=== PATIENT | female | born 1955 | race Caucasian/White ===

== ENCOUNTER 2020-01-13 20:36 | Inpatient (IN) ==
[2020-01-13 21:32] LABS: Apearance,Urine CLEAR (Clear); Bilirubin,Urine Negative (Negative); Blood, Urine Small mg/dL (Negative); Glucose,Urine (UA) Negative (Negative); Ketones,Urine Negative (Negative); Mucus,Urine Occasional /LPF (Occasional); Nitrite,Urine Negative (Negative); Protein,Urine 30 MG/DL; RBC,Urine 4 /HPF (0-4); Squamous Epithelial Cell,Urine Occasional /HPF (0-10); Urine Color Yellow (Yellow); Urine Specific Gravity 1.009 (1.001-1.035); Urine Urobilinogen < 2.0 EU/DL (0.2-1.0); WBC,Urine 41 /HPF (0-6)
[2020-01-13 21:33] LABS: Barbiturates Screen,Urine Negative (Negative); Benzodiazepines Screen,Urine Negative (Negative); Cannabinoid Screen,Urine Negative (Negative); Opiate Screen,Urine Negative (Negative); Phencyclidine Screen,Urine Negative (Negative)
[2020-01-13 21:52] LABS: Basophils % 0.4 % (0.0-0.8); Eosinophils % 0.6 % (0.00-10.9); Immature Granulocytes % 0.6 %; Immature Granulocytes Absolute 0.03 #; Lymphocytes # 0.3 10*3/uL (1.4-4.0); Lymphocytes % 6.2 % (21.3-54.2); Mean Corpuscular HGB Conc 32.4 GM/DL (32-36); Mean Corpuscular Volume 83.3 FL (87-102); Mean Platelet Volume 11.6 FL (9.6-12.0); Monocytes % 0.9 % (1.7-12.7); Neutrophils % 91.3 % (38.7-73.9); Platelet Count 150 T/CUMM (130-400); Red Blood Count 4.44 MC/CUMM (3.8-5.5); Red Cell Distribution Width 15.1 % (9.3-17.3); White Blood Count 5.3 T/CUMM (4-12)
[2020-01-13 22:15] LABS: PT Patient Result 11.3 SECS (9.6-12.2)
[2020-01-13 22:18] LABS: Alanine Aminotransferase 29 U/L (13-56); Albumin 4.3 G/DL (3.4-5.0); Alkaline Phosphatase 83 U/L (45-117); Aspartate Amino Transferase 20 U/L (0-37); Blood Urea Nitrogen 15 MG/DL (7-18); Calcium 9.6 MG/DL (8.5-10.1); Estimated Glom Filtration Rate 47 ML/MIN; Glucose 90 MG/DL (74-106); Total Protein 8.2 G/DL (6.4-8.3); Troponin I < 0.015 NG/ML (0.00-0.045)
[2020-01-13 22:19] LABS: Anisocytosis 1+; Eosinophils 2 % (0-10); Lymphocytes 5 % (20-55); Platelet Estimate Adequate; Segmented Neutrophils 90 % (50-85); Total Cells Counted 100
[2020-01-13] MEDS ORDERED: cefTRIAXone 1,000 MG in SODIUM CHLORIDE 0.9% 100 ML IV STA (22:42)
[2020-01-13] MEDS ORDERED: ONDANSETRON 4 MG/2 ML VIAL IV PRN (23:03)
[2020-01-13] MEDS ORDERED: ACETAMINOPHEN 325 MG TABLET PO PRN (23:03)
[2020-01-14] MEDS: LACTATED RINGERS 1,000 ML IV SCH ×2 (00:47→09:12)
[2020-01-14] MEDS: oxyCODONE/ACETAMINOPHEN 5-325 MG TABLET PO PRN ×3 (01:32→21:46)
[2020-01-14 06:32] LABS: Basophils % 0.3 % (0.0-0.8); Eosinophils % 0.1 % (0.00-10.9); Hematocrit 31.8 VOL% (35.7-47.0); Hemoglobin 10.1 GM/DL (12.0-16.0); Immature Granulocytes % 0.7 %; Immature Granulocytes Absolute 0.08 #; Lymphocytes # 0.9 10*3/uL (1.4-4.0); Lymphocytes % 7.7 % (21.3-54.2); Mean Corpuscular HGB Conc 31.8 GM/DL (32-36); Mean Corpuscular Volume 85.7 FL (87-102); Mean Platelet Volume 11.5 FL (9.6-12.0); Monocytes % 5.2 % (1.7-12.7); Platelet Count 141 T/CUMM (130-400); Red Blood Count 3.71 MC/CUMM (3.8-5.5); Red Cell Distribution Width 15.2 % (9.3-17.3); White Blood Count 11.8 T/CUMM (4-12)
[2020-01-14 07:00] LABS: Calcium 8.6 MG/DL (8.5-10.1); Osmolality,Calculated 276.7 MOS/KG (273-304)
[2020-01-14] MEDS ORDERED: POTASSIUM CHLORIDE 20 MEQ TABLET PO PRN (08:21)
[2020-01-14] MEDS ORDERED: PANTOPRAZOLE 40 MG TABLET PO SCH (09:00)
[2020-01-14] MEDS: DOCUSATE SODIUM 100 MG CAPSULE PO SCH ×2 (09:16→21:46)
[2020-01-14] MEDS: FUROSEMIDE 40 MG TABLET PO SCH ×2 (09:16→17:10)
[2020-01-14] MEDS: carvediloL 3.125 MG TABLET PO SCH ×2 (09:16→21:46)
[2020-01-14] MEDS: SODIUM CHLORIDE 0.9% 1,000 ML IV SCH ×2 (09:16→17:10)
[2020-01-14] MEDS: cefTRIAXone 1,000 MG in SYRINGE 1 EACH IV SCH (09:17)
[2020-01-14] MEDS: OMEPRAZOLE ODT 20 MG TABLET PO SCH ×2 (12:20→21:46)
[2020-01-14] MEDS: allopurinoL 100 MG TABLET PO SCH (12:20)
[2020-01-14] MEDS: SERTRALINE 100 MG TABLET PO SCH (12:21)
[2020-01-14] MEDS: QUEtiapine 100 MG TABLET PO SCH (12:22)
[2020-01-14] MEDS: COLCHICINE 0.6 MG CAPSULE PO SCH ×2 (12:22→21:46)
[2020-01-14] MEDS: tiZANidine 4 MG TABLET PO SCH (21:46)
[2020-01-14] MEDS: DOXEPIN 25 MG CAPSULE PO SCH (21:46)
[2020-01-15] MEDS: SODIUM CHLORIDE 0.9% 1,000 ML IV SCH ×4 (01:11→20:51)
[2020-01-15] MEDS: LEVOTHYROXINE 50 MCG TABLET PO SCH (06:48)
[2020-01-15 06:50] LABS: Calcium 7.5 MG/DL (8.5-10.1); Osmolality,Calculated 278.4 MOS/KG (273-304)
[2020-01-15 08:31] LABS: Basophils % 0.4 % (0.0-0.8); Eosinophils # 0.1 10*3/uL (0.0-0.87); Eosinophils % 1.1 % (0.00-10.9); Hemoglobin 9.6 GM/DL (12.0-16.0); Immature Granulocytes % 0.4 %; Immature Granulocytes Absolute 0.02 #; Lymphocytes # 0.9 10*3/uL (1.4-4.0); Lymphocytes % 16.3 % (21.3-54.2); Mean Corpuscular Volume 87.3 FL (87-102); Mean Platelet Volume 11.7 FL (9.6-12.0); Monocytes % 7.5 % (1.7-12.7); Neutrophils % 74.3 % (38.7-73.9); Platelet Count 111 T/CUMM (130-400); Red Blood Count 3.55 MC/CUMM (3.8-5.5); Red Cell Distribution Width 15.6 % (9.3-17.3); White Blood Count 5.2 T/CUMM (4-12)
[2020-01-15] MEDS: COLCHICINE 0.6 MG CAPSULE PO SCH ×2 (09:36→20:45)
[2020-01-15] MEDS: carvediloL 3.125 MG TABLET PO SCH ×2 (09:36→20:44)
[2020-01-15] MEDS: allopurinoL 100 MG TABLET PO SCH (09:36)
[2020-01-15] MEDS: cefTRIAXone 1,000 MG in SYRINGE 1 EACH IV SCH (09:37)
[2020-01-15] MEDS: FUROSEMIDE 40 MG TABLET PO SCH ×2 (09:37→17:22)
[2020-01-15] MEDS: SERTRALINE 100 MG TABLET PO SCH (09:37)
[2020-01-15] MEDS: DOCUSATE SODIUM 100 MG CAPSULE PO SCH ×2 (09:37→22:51)
[2020-01-15] MEDS: OMEPRAZOLE ODT 20 MG TABLET PO SCH ×2 (09:37→20:45)
[2020-01-15] MEDS: QUEtiapine 100 MG TABLET PO SCH ×2 (09:38→23:01)
[2020-01-15] MEDS: oxyCODONE/ACETAMINOPHEN 5-325 MG TABLET PO PRN ×2 (09:40→19:28)
[2020-01-15] MEDS: PREGABALIN 100 MG CAPSULE PO SCH ×2 (17:22→20:45)
[2020-01-15] MEDS: tiZANidine 4 MG TABLET PO SCH (20:44)
[2020-01-15] MEDS: DOXEPIN 25 MG CAPSULE PO SCH (20:45)
[2020-01-15] MEDS: OXYBUTYNIN 5 MG TABLET PO SCH (20:45)
[2020-01-16] MEDS: oxyCODONE/ACETAMINOPHEN 5-325 MG TABLET PO PRN ×3 (02:09→16:38)
[2020-01-16] MEDS: SODIUM CHLORIDE 0.9% 1,000 ML IV SCH ×2 (05:02→12:56)
[2020-01-16] MEDS: LEVOTHYROXINE 50 MCG TABLET PO SCH (06:21)
[2020-01-16] MEDS: carvediloL 3.125 MG TABLET PO SCH ×2 (09:37→20:32)
[2020-01-16] MEDS: SERTRALINE 100 MG TABLET PO SCH (09:37)
[2020-01-16] MEDS: COLCHICINE 0.6 MG CAPSULE PO SCH ×2 (09:37→20:31)
[2020-01-16] MEDS: CETIRIZINE 10 MG TABLET PO SCH (09:37)
[2020-01-16] MEDS: PREGABALIN 100 MG CAPSULE PO SCH ×3 (09:37→20:32)
[2020-01-16] MEDS: allopurinoL 100 MG TABLET PO SCH (09:37)
[2020-01-16] MEDS: FUROSEMIDE 40 MG TABLET PO SCH ×2 (09:37→16:38)
[2020-01-16] MEDS: OMEPRAZOLE ODT 20 MG TABLET PO SCH ×2 (09:37→20:32)
[2020-01-16] MEDS: QUEtiapine 100 MG TABLET PO SCH ×2 (09:37→20:36)
[2020-01-16] MEDS: OXYBUTYNIN 5 MG TABLET PO SCH ×2 (09:37→20:32)
[2020-01-16] MEDS: DOCUSATE SODIUM 100 MG CAPSULE PO SCH ×2 (09:38→20:31)
[2020-01-16] MEDS: cefTRIAXone 1,000 MG in SYRINGE 1 EACH IV SCH (09:38)
[2020-01-16] MEDS: FLUTICASONE 50 MCG NASAL SPRAY 16 GM BOTTLE BOTH NARES SCH (09:38)
[2020-01-16] MEDS: DOXEPIN 25 MG CAPSULE PO SCH (20:31)
[2020-01-16] MEDS: tiZANidine 4 MG TABLET PO SCH (20:32)
[2020-01-17] MEDS: LEVOTHYROXINE 50 MCG TABLET PO SCH (05:31)
[2020-01-17] MEDS: oxyCODONE/ACETAMINOPHEN 5-325 MG TABLET PO PRN (06:19)
[2020-01-17] MEDS: SERTRALINE 100 MG TABLET PO SCH (08:31)
[2020-01-17] MEDS: FUROSEMIDE 40 MG TABLET PO SCH (08:31)
[2020-01-17] MEDS: QUEtiapine 100 MG TABLET PO SCH ×2 (08:31→08:35)
[2020-01-17] MEDS: DOCUSATE SODIUM 100 MG CAPSULE PO SCH (08:31)
[2020-01-17] MEDS: cefTRIAXone 1,000 MG in SYRINGE 1 EACH IV SCH (08:31)
[2020-01-17] MEDS: OXYBUTYNIN 5 MG TABLET PO SCH (08:32)
[2020-01-17] MEDS: FLUTICASONE 50 MCG NASAL SPRAY 16 GM BOTTLE BOTH NARES SCH (08:32)
[2020-01-17] MEDS: allopurinoL 100 MG TABLET PO SCH (08:32)
[2020-01-17] MEDS: PREGABALIN 100 MG CAPSULE PO SCH (08:32)
[2020-01-17] MEDS: COLCHICINE 0.6 MG CAPSULE PO SCH (08:32)
[2020-01-17] MEDS: CETIRIZINE 10 MG TABLET PO SCH (08:32)
[2020-01-17] MEDS: OMEPRAZOLE ODT 20 MG TABLET PO SCH (08:32)
[2020-01-17] MEDS: carvediloL 3.125 MG TABLET PO SCH (08:32)
[2020-01-17] MEDS: SODIUM CHLORIDE 0.9% 1,000 ML IV SCH (08:33)
[2020-01-17 12:32] VITALS: BP 123/79
== END 2020-01-17 12:32 | disposition home or self-care (01) | DRG 690 ==
LOC: N.ED 20:36 → N.EDINP 23:03 → N.5E 23:23
PROVIDERS: ADMIT Internal Medicine; ATTEND Internal Medicine

== ENCOUNTER 2020-04-02 02:59 | Inpatient (IN) ==
[2020-04-02] MEDS ORDERED: ASPIRIN 325 MG TABLET PO STA (03:11)
[2020-04-02] MEDS ORDERED: SODIUM CHLORIDE 0.9% 1,000 ML IV STA (03:27)
[2020-04-02] MEDS ORDERED: NALOXONE 0.4 MG/ML VIAL IV STA (03:32)
[2020-04-02] MEDS ORDERED: NALOXONE 0.4 MG/ML VIAL ONE (03:32)
[2020-04-02 03:49] LABS: Basophils % 0.6 % (0.0-0.8); Eosinophils # 0.1 10*3/uL (0.0-0.87); Eosinophils % 1.2 % (0.00-10.9); Hematocrit 31.6 VOL% (35.7-47.0); Hemoglobin 9.7 GM/DL (12.0-16.0); Immature Granulocytes % 0.3 %; Immature Granulocytes Absolute 0.02 #; Lymphocytes # 1.6 10*3/uL (1.4-4.0); Lymphocytes % 22.8 % (21.3-54.2); Mean Corpuscular HGB Conc 30.7 GM/DL (32-36); Mean Corpuscular Volume 85.9 FL (87-102); Mean Platelet Volume 11.3 FL (9.6-12.0); Monocytes % 7.6 % (1.7-12.7); Neutrophils % 67.5 % (38.7-73.9); Platelet Count 173 T/CUMM (130-400); Red Blood Count 3.68 MC/CUMM (3.8-5.5); Red Cell Distribution Width 14.9 % (9.3-17.3); White Blood Count 6.8 T/CUMM (4-12)
[2020-04-02 04:09] LABS: Alanine Aminotransferase 22 U/L (13-56); Albumin 3.1 G/DL (3.4-5.0); Alkaline Phosphatase 75 U/L (45-117); Aspartate Amino Transferase 20 U/L (0-37); Bilirubin,Total < 0.39 MG/DL (0.2-1.0); Blood Urea Nitrogen 16 MG/DL (7-18); Estimated Glom Filtration Rate 51 ML/MIN; Glucose 140 MG/DL (74-106); Osmolality,Calculated 279.5 MOS/KG (273-304); Total Protein 5.9 G/DL (6.4-8.3)
[2020-04-02 04:34] LABS: Apearance,Urine CLEAR (Clear); Bacteria,Urine Occasional /HPF (Few); Blood, Urine Negative (Negative); Glucose,Urine (UA) Negative (Negative); Hyaline Casts,Urine 489 /LPF (0-3); Ketones,Urine Negative (Negative); Mucus,Urine Occasional /LPF (Occasional); Nitrite,Urine Negative (Negative); Protein,Urine Negative; RBC,Urine <1 /HPF (0-4); Squamous Epithelial Cell,Urine Occasional /HPF (0-10); Urine Color Yellow (Yellow); Urine Specific Gravity 1.024 (1.001-1.035); Urine Urobilinogen < 2.0 EU/DL (0.2-1.0); WBC,Urine 2 /HPF (0-6)
[2020-04-02 04:35] LABS: Bilirubin,Urine Small mg/dL (Negative)
[2020-04-02 04:48] LABS: Barbiturates Screen,Urine Negative (Negative); Benzodiazepines Screen,Urine Negative (Negative); Cannabinoid Screen,Urine Negative (Negative); Opiate Screen,Urine Positive (Negative); Phencyclidine Screen,Urine Negative (Negative)
[2020-04-02 04:51] LABS: Ferritin 10.2 ng/ml (8-252)
[2020-04-02] MEDS ORDERED: AZITHROMYCIN INJ 500 MG in SODIUM CHLORIDE 0.9% 250 ML IV STA (05:12)
[2020-04-02] MEDS ORDERED: ONDANSETRON 4 MG/2 ML VIAL IV PRN (05:13)
[2020-04-02] MEDS ORDERED: ACETAMINOPHEN 325 MG TABLET PO PRN (05:13)
[2020-04-02] MEDS ORDERED: AZITHROMYCIN INJ 500 MG in SODIUM CHLORIDE 0.9% 250 ML IV SCH (05:30)
[2020-04-02] MEDS: SODIUM CHLORIDE 0.9% 1,000 ML IV SCH ×2 (08:55→15:52)
[2020-04-02] MEDS: PANTOPRAZOLE 40 MG TABLET PO SCH (08:55)
[2020-04-02] MEDS ORDERED: traMADol 50 MG TABLET PO PRN (16:17)
[2020-04-02] MEDS ORDERED: tiZANidine 4 MG TABLET PO PRN (16:55)
[2020-04-02] MEDS: oxyCODONE IR 5 MG TABLET PO PRN (17:22)
[2020-04-02] MEDS ORDERED: AMPHETAMINE PO SCH (19:00)
[2020-04-02] MEDS ORDERED: DEXTROAMPHETAMINE PO SCH (19:00)
[2020-04-02] MEDS: DULoxetine 30 MG CAPSULE PO SCH (20:44)
[2020-04-02] MEDS: carvediloL 6.25 MG TABLET PO SCH (20:45)
[2020-04-02] MEDS: QUEtiapine 100 MG TABLET PO SCH (20:45)
[2020-04-02] MEDS: OXYBUTYNIN 5 MG TABLET PO SCH (20:46)
[2020-04-02] MEDS: PREGABALIN 100 MG CAPSULE PO SCH (20:46)
[2020-04-03] MEDS: oxyCODONE IR 5 MG TABLET PO PRN ×2 (02:54→10:51)
[2020-04-03 05:51] LABS: Basophils % 0.6 % (0.0-0.8); Eosinophils # 0.1 10*3/uL (0.0-0.87); Eosinophils % 1.4 % (0.00-10.9); Hematocrit 30.3 VOL% (35.7-47.0); Hemoglobin 9.4 GM/DL (12.0-16.0); Immature Granulocytes % 0.6 %; Immature Granulocytes Absolute 0.03 #; Lymphocytes # 1.6 10*3/uL (1.4-4.0); Lymphocytes % 32.7 % (21.3-54.2); Mean Corpuscular Volume 85.8 FL (87-102); Mean Platelet Volume 11.4 FL (9.6-12.0); Monocytes % 8.4 % (1.7-12.7); Neutrophils % 56.3 % (38.7-73.9); Platelet Count 141 T/CUMM (130-400); Red Blood Count 3.53 MC/CUMM (3.8-5.5); Red Cell Distribution Width 15.3 % (9.3-17.3); White Blood Count 4.9 T/CUMM (4-12)
[2020-04-03 06:22] LABS: Calcium 7.9 MG/DL (8.5-10.1); Osmolality,Calculated 279.4 MOS/KG (273-304); Uric Acid 7.2 MG/DL (2.6-6.0)
[2020-04-03] MEDS: carvediloL 6.25 MG TABLET PO SCH ×2 (10:51→22:37)
[2020-04-03] MEDS: FLUTICASONE 50 MCG NASAL SPRAY 16 GM BOTTLE BOTH NARES SCH (10:51)
[2020-04-03] MEDS: AZITHROMYCIN 250 MG TABLET PO SCH (10:51)
[2020-04-03] MEDS: PANTOPRAZOLE 40 MG TABLET PO SCH (10:52)
[2020-04-03] MEDS: CETIRIZINE 10 MG TABLET PO SCH (10:52)
[2020-04-03] MEDS: LEVOTHYROXINE 100 MCG TABLET PO SCH (10:52)
[2020-04-03] MEDS: SERTRALINE 100 MG TABLET PO SCH (10:52)
[2020-04-03] MEDS: OXYBUTYNIN 5 MG TABLET PO SCH ×2 (10:52→22:38)
[2020-04-03] MEDS: DULoxetine 30 MG CAPSULE PO SCH ×2 (10:52→22:37)
[2020-04-03] MEDS: PREGABALIN 100 MG CAPSULE PO SCH ×3 (10:52→22:38)
[2020-04-03] MEDS: ENOXAPARIN 40 MG/0.4 ML SYRINGE SUBCUT SCH (11:32)
[2020-04-03] MEDS: SODIUM CHLORIDE 0.9% 1,000 ML IV SCH ×2 (13:28→14:15)
[2020-04-03] MEDS: ALBUTEROL 1.25 MG/3 ML NEB RESP TX SCH ×2 (14:50→23:57)
[2020-04-03] MEDS: methylPREDNISolone SOD SUC 40 MG/1 ML VIAL IV SCH ×2 (15:54→23:49)
[2020-04-03] MEDS: QUEtiapine 100 MG TABLET PO SCH (22:38)
[2020-04-04 05:58] LABS: Calcium 8.5 MG/DL (8.5-10.1); Osmolality,Calculated 276.7 MOS/KG (273-304)
[2020-04-04] MEDS: methylPREDNISolone SOD SUC 40 MG/1 ML VIAL IV SCH ×3 (06:01→21:40)
[2020-04-04] MEDS: ALBUTEROL 1.25 MG/3 ML NEB RESP TX SCH ×2 (08:09→14:27)
[2020-04-04 08:58] LABS: Troponin I < 0.015 NG/ML (0.00-0.045)
[2020-04-04] MEDS: ENOXAPARIN 40 MG/0.4 ML SYRINGE SUBCUT SCH (09:44)
[2020-04-04] MEDS: AZITHROMYCIN 250 MG TABLET PO SCH (09:45)
[2020-04-04] MEDS: LEVOTHYROXINE 100 MCG TABLET PO SCH (09:45)
[2020-04-04] MEDS: SERTRALINE 100 MG TABLET PO SCH (09:46)
[2020-04-04] MEDS: carvediloL 6.25 MG TABLET PO SCH ×2 (09:46→21:40)
[2020-04-04] MEDS: FLUTICASONE 50 MCG NASAL SPRAY 16 GM BOTTLE BOTH NARES SCH (09:46)
[2020-04-04] MEDS: CETIRIZINE 10 MG TABLET PO SCH (09:46)
[2020-04-04] MEDS: OXYBUTYNIN 5 MG TABLET PO SCH ×2 (09:46→21:40)
[2020-04-04] MEDS: PREGABALIN 100 MG CAPSULE PO SCH ×3 (09:46→21:40)
[2020-04-04] MEDS: PANTOPRAZOLE 40 MG TABLET PO SCH (09:46)
[2020-04-04] MEDS: DULoxetine 30 MG CAPSULE PO SCH ×2 (09:46→21:40)
[2020-04-04] MEDS: oxyCODONE IR 5 MG TABLET PO PRN ×2 (09:56→19:15)
[2020-04-04 12:18] LABS: Troponin I < 0.015 NG/ML (0.00-0.045)
[2020-04-04 15:03] LABS: Troponin I < 0.015 NG/ML (0.00-0.045)
[2020-04-04] MEDS: SODIUM CHLORIDE 0.9% 1,000 ML IV SCH (15:43)
[2020-04-04] MEDS: QUEtiapine 100 MG TABLET PO SCH (21:40)
[2020-04-05] MEDS: ALBUTEROL 1.25 MG/3 ML NEB RESP TX SCH ×2 (00:27→07:15)
[2020-04-05] MEDS: SODIUM CHLORIDE 0.9% 1,000 ML IV SCH ×2 (02:57→09:18)
[2020-04-05 05:45] LABS: Basophils % 0.1 % (0.0-0.8); Hematocrit 32.4 VOL% (35.7-47.0); Hemoglobin 9.9 GM/DL (12.0-16.0); Immature Granulocytes % 0.9 %; Immature Granulocytes Absolute 0.11 #; Lymphocytes # 1.2 10*3/uL (1.4-4.0); Lymphocytes % 9.5 % (21.3-54.2); Mean Corpuscular HGB Conc 30.6 GM/DL (32-36); Mean Corpuscular Volume 87.3 FL (87-102); Mean Platelet Volume 11.9 FL (9.6-12.0); Neutrophils % 86.5 % (38.7-73.9); Platelet Count 175 T/CUMM (130-400); Red Blood Count 3.71 MC/CUMM (3.8-5.5); Red Cell Distribution Width 15.4 % (9.3-17.3); White Blood Count 12.2 T/CUMM (4-12)
[2020-04-05 06:06] LABS: Calcium 8.6 MG/DL (8.5-10.1); Osmolality,Calculated 277.8 MOS/KG (273-304)
[2020-04-05] MEDS: carvediloL 6.25 MG TABLET PO SCH (08:32)
[2020-04-05] MEDS: SERTRALINE 100 MG TABLET PO SCH (09:01)
[2020-04-05] MEDS: PANTOPRAZOLE 40 MG TABLET PO SCH (09:01)
[2020-04-05] MEDS: DULoxetine 30 MG CAPSULE PO SCH (09:01)
[2020-04-05] MEDS: ENOXAPARIN 40 MG/0.4 ML SYRINGE SUBCUT SCH (09:01)
[2020-04-05] MEDS: AZITHROMYCIN 250 MG TABLET PO SCH (09:01)
[2020-04-05] MEDS: CETIRIZINE 10 MG TABLET PO SCH (09:02)
[2020-04-05] MEDS: OXYBUTYNIN 5 MG TABLET PO SCH (09:02)
[2020-04-05] MEDS: LEVOTHYROXINE 100 MCG TABLET PO SCH (09:02)
[2020-04-05] MEDS: oxyCODONE IR 5 MG TABLET PO PRN (09:02)
[2020-04-05] MEDS: PREGABALIN 100 MG CAPSULE PO SCH (09:02)
[2020-04-05] MEDS: FLUTICASONE 50 MCG NASAL SPRAY 16 GM BOTTLE BOTH NARES SCH (09:03)
[2020-04-05] MEDS: methylPREDNISolone SOD SUC 40 MG/1 ML VIAL IV SCH (09:14)
[2020-04-05 11:26] VITALS: BP 112/64
== END 2020-04-05 12:21 | disposition home or self-care (01) | DRG 203 ==
LOC: N.ED 02:59 → N.EDINP 05:12 → N.3E 13:39
PROVIDERS: ADMIT Internal Medicine; ATTEND Internal Medicine

== ENCOUNTER 2021-10-29 05:33 | Inpatient (IN) ==
[2021-10-29] MEDS ORDERED: GABAPENTIN 400 MG CAPSULE PO ONE (06:24)
[2021-10-29] MEDS ORDERED: FAMOTIDINE 20 MG TABLET PO ONE (06:24)
[2021-10-29] MEDS ORDERED: ACETAMINOPHEN 500 MG TABLET PO ONE (06:24)
[2021-10-29] MEDS ORDERED: DIAZEPAM 5 MG TABLET PO ONE (06:24)
[2021-10-29] MEDS ORDERED: VANCOMYCIN INJ 1,000 MG in SODIUM CHLORIDE 0.9% 250 ML IV ONE (06:30)
[2021-10-29] MEDS ORDERED: CLINDAMYCIN INJ 900 MG/50 ML PREMIX IV ONE (06:56)
[2021-10-29] MEDS: LACTATED RINGERS 1,000 ML IV SCH ×2 (07:14→11:02)
[2021-10-29] MEDS ORDERED: DEXMEDETOMIDINE 200 MCG/2 ML VIAL ONE (07:45)
[2021-10-29] MEDS ORDERED: LIDOCAINE 1% 5 ML VIAL ONE (07:45)
[2021-10-29] MEDS ORDERED: ROPIVACAINE 0.5% 30 ML VIAL ONE (07:45)
[2021-10-29] MEDS ORDERED: DEXAMETHASONE 4 MG/1 ML VIAL ONE (07:45)
[2021-10-29] MEDS ORDERED: MIDAZOLAM 2 MG/2 ML VIAL ONE ×2 (08:09→09:28)
[2021-10-29] MEDS ORDERED: TRANEXAMIC ACID 1,000 MG/10 ML VIAL ONE (08:53)
[2021-10-29] MEDS ORDERED: PHENYLEPHRINE 1 MG/10 ML SYRINGE IV ONE (08:58)
[2021-10-29] MEDS ORDERED: GLYCOPYRROLATE 0.4 MG/2 ML VIAL ONE (09:26)
[2021-10-29] MEDS ORDERED: ACETAMINOPHEN INJ 1,000 MG/100 ML VIAL IV ONE (09:31)
[2021-10-29] MEDS ORDERED: PROMETHAZINE 25 MG/1 ML VIAL IM PRN (10:03)
[2021-10-29] MEDS ORDERED: LACTULOSE 20 GM/30 ML UDCUP PO PRN (10:03)
[2021-10-29] MEDS ORDERED: MAGNESIUM HYDROXIDE SUSP 30 ML UDCUP PO PRN (10:03)
[2021-10-29] MEDS ORDERED: TEMAZEPAM 7.5 MG CAPSULE PO PRN (10:03)
[2021-10-29] MEDS ORDERED: ONDANSETRON 4 MG/2 ML VIAL IV PRN (10:03)
[2021-10-29] MEDS ORDERED: diphenhydrAMINE CAP 25 MG CAPSULE PO PRN (10:03)
[2021-10-29] MEDS ORDERED: BISACODYL 10 MG SUPP RECTAL PRN (10:03)
[2021-10-29] MEDS ORDERED: ALBUTEROL 2.5 MG/3 ML NEB RESP TX PRN (10:06)
[2021-10-29] MEDS ORDERED: COLCHICINE 0.6 MG CAPSULE PO PRN (10:06)
[2021-10-29] MEDS ORDERED: tiZANidine 4 MG TABLET PO PRN (10:06)
[2021-10-29] MEDS ORDERED: MORPHINE 2 MG/1 ML SYRINGE IV PRN (10:49)
[2021-10-29] MEDS: PREGABALIN 100 MG CAPSULE PO SCH ×2 (15:59→20:25)
[2021-10-29] MEDS: PANTOPRAZOLE 40 MG TABLET PO SCH (17:19)
[2021-10-29] MEDS: FERROUS SULFATE 325 MG TABLET PO SCH (17:19)
[2021-10-29] MEDS: ceFAZolin 2,000 MG/50 ML DUPLEX IV SCH (17:19)
[2021-10-29] MEDS: ENOXAPARIN 30 MG/0.3 ML SYRINGE SUBCUT SCH (20:24)
[2021-10-29] MEDS: MORPHINE 2 MG/1 ML SYRINGE IV PRN (20:24)
[2021-10-29] MEDS: DULoxetine 30 MG CAPSULE PO SCH (20:24)
[2021-10-29] MEDS: ZALEPLON 5 MG CAPSULE PO SCH (20:24)
[2021-10-29] MEDS: POTASSIUM CHLORIDE 10 MEQ TABLET PO SCH (20:24)
[2021-10-29] MEDS: DOCUSATE SODIUM 100 MG CAPSULE PO SCH (20:24)
[2021-10-29] MEDS: OXYBUTYNIN 5 MG TABLET PO SCH (20:24)
[2021-10-29] MEDS ORDERED: NABUMETONE 750 MG PO SCH (21:00)
[2021-10-30] MEDS: ceFAZolin 2,000 MG/50 ML DUPLEX IV SCH (00:25)
[2021-10-30] MEDS: MORPHINE 2 MG/1 ML SYRINGE IV PRN ×2 (04:51→10:54)
[2021-10-30 05:19] LABS: Basophils % 0.1 % (0.0-0.8); Hematocrit 28.7 VOL% (35.7-47.0); Hemoglobin 8.8 GM/DL (12.0-16.0); Immature Granulocytes % 0.5 %; Immature Granulocytes Absolute 0.05 #; Lymphocytes # 1.5 10*3/uL (1.4-4.0); Lymphocytes % 14.5 % (21.3-54.2); Mean Corpuscular HGB Conc 30.7 GM/DL (32-36); Mean Corpuscular Volume 81.5 FL (87-102); Mean Platelet Volume 11.5 FL (9.6-12.0); Monocytes % 7.8 % (1.7-12.7); Neutrophils % 77.1 % (38.7-73.9); Platelet Count 170 T/CUMM (130-400); Red Blood Count 3.52 MC/CUMM (3.8-5.5); Red Cell Distribution Width 17.3 % (9.3-17.3); White Blood Count 10.3 T/CUMM (4-12)
[2021-10-30 05:58] LABS: Calcium 8.2 MG/DL (8.5-10.1); Osmolality,Calculated 283.1 MOS/KG (273-304); Potassium 3.2 MMOL/L (3.5-5.1)
[2021-10-30] MEDS: LEVOTHYROXINE 100 MCG TABLET PO SCH (06:11)
[2021-10-30] MEDS: FERROUS SULFATE 325 MG TABLET PO SCH ×2 (07:40→16:07)
[2021-10-30] MEDS: PANTOPRAZOLE 40 MG TABLET PO SCH ×2 (07:40→15:52)
[2021-10-30] MEDS: carvediloL 6.25 MG TABLET PO SCH ×2 (09:23→20:37)
[2021-10-30] MEDS: allopurinoL 300 MG TABLET PO SCH (09:23)
[2021-10-30] MEDS: FLUTICASONE 50 MCG NASAL SPRAY 16 GM BOTTLE BOTH NARES SCH (09:23)
[2021-10-30] MEDS: DOCUSATE SODIUM 100 MG CAPSULE PO SCH ×2 (09:23→20:37)
[2021-10-30] MEDS: LORATADINE 10 MG TABLET PO SCH (09:23)
[2021-10-30] MEDS: OXYBUTYNIN 5 MG TABLET PO SCH ×2 (09:23→20:37)
[2021-10-30] MEDS: POTASSIUM CHLORIDE 10 MEQ TABLET PO SCH ×4 (09:23→20:37)
[2021-10-30] MEDS: PREGABALIN 100 MG CAPSULE PO SCH ×3 (09:24→20:37)
[2021-10-30] MEDS ORDERED: ACETAMINOPHEN 325 MG TABLET PO PRN (10:05)
[2021-10-30] MEDS: FUROSEMIDE 40 MG TABLET PO SCH (10:20)
[2021-10-30] MEDS: CARIPRAZINE 3 MG PO SCH (10:20)
[2021-10-30] MEDS: oxyCODONE IR 5 MG TABLET PO PRN (15:52)
[2021-10-30] MEDS: DULoxetine 30 MG CAPSULE PO SCH (20:37)
[2021-10-30] MEDS: ENOXAPARIN 30 MG/0.3 ML SYRINGE SUBCUT SCH (20:38)
[2021-10-30] MEDS: ZALEPLON 5 MG CAPSULE PO SCH (20:42)
[2021-10-31] MEDS: oxyCODONE IR 5 MG TABLET PO PRN ×2 (00:29→15:08)
[2021-10-31 04:44] LABS: Basophils % 0.3 % (0.0-0.8); Eosinophils # 0.1 10*3/uL (0.0-0.87); Eosinophils % 1.1 % (0.00-10.9); Hematocrit 30.1 VOL% (35.7-47.0); Hemoglobin 9.2 GM/DL (12.0-16.0); Immature Granulocytes % 0.7 %; Immature Granulocytes Absolute 0.06 #; Lymphocytes # 1.7 10*3/uL (1.4-4.0); Lymphocytes % 18.7 % (21.3-54.2); Mean Corpuscular HGB Conc 30.6 GM/DL (32-36); Mean Corpuscular Volume 82.5 FL (87-102); Mean Platelet Volume 11.2 FL (9.6-12.0); Monocytes % 7.4 % (1.7-12.7); Neutrophils % 71.8 % (38.7-73.9); Platelet Count 153 T/CUMM (130-400); Red Blood Count 3.65 MC/CUMM (3.8-5.5); Red Cell Distribution Width 18.3 % (9.3-17.3); White Blood Count 8.8 T/CUMM (4-12)
[2021-10-31 05:11] LABS: Calcium 8.3 MG/DL (8.5-10.1); Osmolality,Calculated 283.1 MOS/KG (273-304); Potassium 3.3 MMOL/L (3.5-5.1)
[2021-10-31] MEDS: LEVOTHYROXINE 100 MCG TABLET PO SCH (06:11)
[2021-10-31] MEDS ORDERED: POTASSIUM CHLORIDE 20 MEQ TABLET PO PRN (08:33)
[2021-10-31] MEDS: POTASSIUM CHLORIDE 10 MEQ TABLET PO SCH ×3 (08:57→20:29)
[2021-10-31] MEDS: OXYBUTYNIN 5 MG TABLET PO SCH ×2 (08:57→20:29)
[2021-10-31] MEDS: DOCUSATE SODIUM 100 MG CAPSULE PO SCH ×2 (08:58→20:29)
[2021-10-31] MEDS: carvediloL 6.25 MG TABLET PO SCH ×2 (08:58→20:28)
[2021-10-31] MEDS: FERROUS SULFATE 325 MG TABLET PO SCH ×2 (08:58→16:23)
[2021-10-31] MEDS: PREGABALIN 100 MG CAPSULE PO SCH ×3 (08:58→20:29)
[2021-10-31] MEDS: PANTOPRAZOLE 40 MG TABLET PO SCH ×2 (08:58→16:23)
[2021-10-31] MEDS: LORATADINE 10 MG TABLET PO SCH (08:58)
[2021-10-31] MEDS: allopurinoL 300 MG TABLET PO SCH (08:58)
[2021-10-31] MEDS: FLUTICASONE 50 MCG NASAL SPRAY 16 GM BOTTLE BOTH NARES SCH (09:02)
[2021-10-31] MEDS: FUROSEMIDE 40 MG TABLET PO SCH (10:32)
[2021-10-31] MEDS: CARIPRAZINE 3 MG PO SCH (10:33)
[2021-10-31] MEDS: DULoxetine 30 MG CAPSULE PO SCH (20:28)
[2021-10-31] MEDS: ZALEPLON 5 MG CAPSULE PO SCH (20:29)
[2021-10-31] MEDS: ENOXAPARIN 30 MG/0.3 ML SYRINGE SUBCUT SCH (20:30)
[2021-11-01] MEDS: LEVOTHYROXINE 100 MCG TABLET PO SCH (05:36)
[2021-11-01 08:10] VITALS: BP 131/66
[2021-11-01] MEDS: FERROUS SULFATE 325 MG TABLET PO SCH (09:29)
[2021-11-01] MEDS: LORATADINE 10 MG TABLET PO SCH (09:30)
[2021-11-01] MEDS: allopurinoL 300 MG TABLET PO SCH (09:30)
[2021-11-01] MEDS: carvediloL 6.25 MG TABLET PO SCH (09:30)
[2021-11-01] MEDS: OXYBUTYNIN 5 MG TABLET PO SCH (09:30)
[2021-11-01] MEDS: DOCUSATE SODIUM 100 MG CAPSULE PO SCH (09:30)
[2021-11-01] MEDS: PANTOPRAZOLE 40 MG TABLET PO SCH (09:30)
[2021-11-01] MEDS: POTASSIUM CHLORIDE 10 MEQ TABLET PO SCH (09:31)
[2021-11-01] MEDS: PREGABALIN 100 MG CAPSULE PO SCH (09:31)
[2021-11-01] MEDS: FLUTICASONE 50 MCG NASAL SPRAY 16 GM BOTTLE BOTH NARES SCH (09:35)
[2021-11-01] MEDS: CARIPRAZINE 3 MG PO SCH (10:04)
[2021-11-01] MEDS: FUROSEMIDE 40 MG TABLET PO SCH (10:04)
[2021-11-01] MEDS: ENOXAPARIN 30 MG/0.3 ML SYRINGE SUBCUT SCH (10:33)
== END 2021-11-01 11:57 | disposition home health service (06) | DRG 470 ==
LOC: N.OR 05:33 → N.SDSINP 05:36 → N.3E 11:31
PROVIDERS: ADMIT Orthopaedic Surgery; ATTEND Orthopaedic Surgery

== ENCOUNTER 2022-09-05 05:42 | Inpatient (IN) ==
[2022-09-05] MEDS ORDERED: ONDANSETRON 4 MG/2 ML VIAL IV STA (06:03)
[2022-09-05] MEDS ORDERED: MORPHINE 10 MG/1 ML VIAL IV STA ×3 (06:03→09:42)
[2022-09-05] MEDS ORDERED: MORPHINE 2 MG/1 ML SYRINGE ONE (06:08)
[2022-09-05 06:09] LABS: Basophils % 0.4 % (0.0-0.8); Eosinophils % 0.4 % (0.00-10.9); Hematocrit 36.8 VOL% (35.7-47.0); Immature Granulocytes % 0.3 %; Immature Granulocytes Absolute 0.03 #; Lymphocytes % 9.3 % (21.3-54.2); Mean Corpuscular HGB Conc 32.6 GM/DL (32-36); Mean Corpuscular Volume 79.1 FL (87-102); Mean Platelet Volume 10.6 FL (9.6-12.0); Monocytes # 0.9 10*3/uL (0.11-0.8); Monocytes % 8.3 % (1.7-12.7); Neutrophils % 81.3 % (38.7-73.9); Platelet Count 233 T/CUMM (130-400); Red Blood Count 4.65 MC/CUMM (3.8-5.5); Red Cell Distribution Width 15.7 % (9.3-17.3); White Blood Count 10.7 T/CUMM (4-12)
[2022-09-05] MEDS ORDERED: PROMETHAZINE INJ 12.5 MG in SODIUM CHLORIDE 0.9% 50 ML IV STA (06:17)
[2022-09-05] MEDS ORDERED: PROMETHAZINE 25 MG/1 ML VIAL ONE (06:19)
[2022-09-05] MEDS ORDERED: KETOROLAC 30 MG/1 ML VIAL IV STA (06:28)
[2022-09-05 06:29] LABS: Albumin 3.8 G/DL (3.4-5.0); Bilirubin,Total 0.5 MG/DL (0.20-1.00); Calcium 8.9 MG/DL (8.5-10.1); Osmolality,Calculated 285.3 MOS/KG (273-304); Potassium 3.2 MMOL/L (3.5-5.1); Total Protein 7.3 G/DL (6.4-8.2)
[2022-09-05] MEDS ORDERED: MORPHINE 2 MG/1 ML SYRINGE IV STA ×2 (06:30→09:45)
[2022-09-05] MEDS ORDERED: SODIUM CHLORIDE 0.9% 1,000 ML IV STA (07:25)
[2022-09-05] MEDS ORDERED: LORazepam 2 MG/1 ML VIAL IV STA (10:59)
[2022-09-05] MEDS ORDERED: ONDANSETRON 4 MG/2 ML VIAL IV PRN (11:01)
[2022-09-05] MEDS ORDERED: ACETAMINOPHEN 325 MG TABLET PO PRN (11:01)
[2022-09-05] MEDS ORDERED: MORPHINE 2 MG/1 ML SYRINGE IV PRN (11:01)
[2022-09-05] MEDS: DEXTROSE 5% LACTATED RINGERS 1,000 ML IV SCH ×2 (15:57→21:50)
[2022-09-05] MEDS: FUROSEMIDE 40 MG TABLET PO SCH (17:04)
[2022-09-05] MEDS: MORPHINE 2 MG/1 ML SYRINGE IV PRN (18:27)
[2022-09-05] MEDS: PREGABALIN 100 MG CAPSULE PO SCH (21:06)
[2022-09-05] MEDS: ZALEPLON 5 MG CAPSULE PO PRN (21:06)
[2022-09-05] MEDS: carvediloL 6.25 MG TABLET PO SCH (21:06)
[2022-09-05] MEDS: tiZANidine 4 MG TABLET PO PRN (21:06)
[2022-09-06] MEDS: DEXTROSE 5% LACTATED RINGERS 1,000 ML IV SCH ×7 (00:30→23:01)
[2022-09-06 05:28] LABS: Basophils % 0.4 % (0.0-0.8); Eosinophils # 0.1 10*3/uL (0.0-0.87); Eosinophils % 1.5 % (0.00-10.9); Hematocrit 30.1 VOL% (35.7-47.0); Hemoglobin 9.6 GM/DL (12.0-16.0); Immature Granulocytes % 0.2 %; Immature Granulocytes Absolute 0.01 #; Lymphocytes # 1.3 10*3/uL (1.4-4.0); Lymphocytes % 27.6 % (21.3-54.2); Mean Corpuscular HGB Conc 31.9 GM/DL (32-36); Mean Platelet Volume 11.1 FL (9.6-12.0); Monocytes # 0.4 10*3/uL (0.11-0.8); Neutrophils % 61.3 % (38.7-73.9); Platelet Count 185 T/CUMM (130-400); Red Blood Count 3.67 MC/CUMM (3.8-5.5); Red Cell Distribution Width 15.9 % (9.3-17.3); White Blood Count 4.6 T/CUMM (4-12)
[2022-09-06] MEDS: ENOXAPARIN 40 MG/0.4 ML SYRINGE SUBCUT SCH (05:34)
[2022-09-06 05:41] LABS: Calcium 7.7 MG/DL (8.5-10.1); Osmolality,Calculated 286.8 MOS/KG (273-304); Potassium 2.9 MMOL/L (3.5-5.1)
[2022-09-06] MEDS: POTASSIUM CHLORIDE RIDER 10 MEQ/100 ML PREMIX IV PRN ×8 (07:14→17:59)
[2022-09-06] MEDS: carvediloL 6.25 MG TABLET PO SCH ×2 (08:39→20:10)
[2022-09-06] MEDS: PANTOPRAZOLE 40 MG TABLET PO SCH (08:39)
[2022-09-06] MEDS: PREGABALIN 100 MG CAPSULE PO SCH ×3 (08:39→20:10)
[2022-09-06] MEDS: FUROSEMIDE 40 MG TABLET PO SCH ×2 (08:39→15:34)
[2022-09-06] MEDS: MORPHINE 2 MG/1 ML SYRINGE IV PRN ×3 (08:44→19:23)
[2022-09-06] MEDS: tiZANidine 4 MG TABLET PO PRN ×3 (11:25→23:01)
[2022-09-06] MEDS ORDERED: NABUMETONE 750 MG TABLET PO PRN (13:30)
[2022-09-06] MEDS ORDERED: HydrOXYzine PAMOATE 25 MG CAPSULE PO PRN (13:30)
[2022-09-06] MEDS ORDERED: busPIRone 10 MG TABLET PO PRN (13:30)
[2022-09-06 17:18] LABS: RBC,Urine 1 /HPF (0-4); Squamous Epithelial Cell,Urine Occasional /HPF (0-10)
[2022-09-06 17:30] LABS: Glucose,Urine (UA) Negative (Negative); Ketones,Urine Negative (Negative); Nitrite,Urine Negative (Negative); Protein,Urine Negative (Negative); Urine Appearance Clear (Clear); Urine Color Yellow (Yellow); Urine pH 7.5 (4.5-8.0)
[2022-09-06 17:31] LABS: Bilirubin,Urine Negative (Negative); Blood, Urine Negative (Negative); Urine Urobilinogen 0.2 eU/dL (<2.0)
[2022-09-06] MEDS: OXYBUTYNIN 5 MG TABLET PO SCH (20:10)
[2022-09-07] MEDS: ENOXAPARIN 40 MG/0.4 ML SYRINGE SUBCUT SCH (04:54)
[2022-09-07] MEDS: MORPHINE 2 MG/1 ML SYRINGE IV PRN ×2 (04:54→21:04)
[2022-09-07] MEDS: DEXTROSE 5% LACTATED RINGERS 1,000 ML IV SCH ×2 (05:00→15:20)
[2022-09-07] MEDS: LEVOTHYROXINE 100 MCG TABLET PO SCH (05:57)
[2022-09-07] MEDS: DULoxetine 30 MG CAPSULE PO SCH (08:38)
[2022-09-07] MEDS: carvediloL 6.25 MG TABLET PO SCH ×2 (08:39→21:01)
[2022-09-07] MEDS: FUROSEMIDE 40 MG TABLET PO SCH ×2 (08:39→16:02)
[2022-09-07] MEDS: OXYBUTYNIN 5 MG TABLET PO SCH ×2 (08:39→21:01)
[2022-09-07] MEDS: PANTOPRAZOLE 40 MG TABLET PO SCH (08:39)
[2022-09-07] MEDS: PREGABALIN 100 MG CAPSULE PO SCH ×3 (08:39→21:01)
[2022-09-07] MEDS: POTASSIUM CHLORIDE 10 MEQ TABLET PO SCH (09:11)
[2022-09-07] MEDS: FLUTICASONE 50 MCG NASAL SPRAY 16 GM BOTTLE BOTH NARES SCH (10:49)
[2022-09-07] MEDS: ZALEPLON 5 MG CAPSULE PO PRN (23:17)
[2022-09-07] MEDS: tiZANidine 4 MG TABLET PO PRN (23:18)
[2022-09-08] MEDS: DEXTROSE 5% LACTATED RINGERS 1,000 ML IV SCH (02:08)
[2022-09-08 05:46] LABS: Basophils % 0.6 % (0.0-0.8); Eosinophils # 0.1 10*3/uL (0.0-0.87); Eosinophils % 1.1 % (0.00-10.9); Hematocrit 34.1 VOL% (35.7-47.0); Immature Granulocytes % 0.3 %; Immature Granulocytes Absolute 0.02 #; Lymphocytes # 1.4 10*3/uL (1.4-4.0); Mean Corpuscular HGB Conc 32.3 GM/DL (32-36); Mean Corpuscular Volume 80.8 FL (87-102); Mean Platelet Volume 11.2 FL (9.6-12.0); Monocytes # 0.6 10*3/uL (0.11-0.8); Monocytes % 9.7 % (1.7-12.7); Neutrophils % 65.3 % (38.7-73.9); Platelet Count 218 T/CUMM (130-400); Red Blood Count 4.22 MC/CUMM (3.8-5.5); Red Cell Distribution Width 15.4 % (9.3-17.3); White Blood Count 6.3 T/CUMM (4-12)
[2022-09-08] MEDS: LEVOTHYROXINE 100 MCG TABLET PO SCH (06:01)
[2022-09-08] MEDS: ENOXAPARIN 40 MG/0.4 ML SYRINGE SUBCUT SCH (06:01)
[2022-09-08] MEDS: PREGABALIN 100 MG CAPSULE PO SCH (09:08)
[2022-09-08] MEDS: OXYBUTYNIN 5 MG TABLET PO SCH (09:08)
[2022-09-08] MEDS: carvediloL 6.25 MG TABLET PO SCH (09:08)
[2022-09-08] MEDS: DULoxetine 30 MG CAPSULE PO SCH (09:08)
[2022-09-08] MEDS: PANTOPRAZOLE 40 MG TABLET PO SCH (09:09)
[2022-09-08] MEDS: POTASSIUM CHLORIDE 10 MEQ TABLET PO SCH (09:09)
[2022-09-08] MEDS: FUROSEMIDE 40 MG TABLET PO SCH (09:09)
[2022-09-08] MEDS: FLUTICASONE 50 MCG NASAL SPRAY 16 GM BOTTLE BOTH NARES SCH (09:13)
[2022-09-08 12:25] VITALS: BP 139/78
== END 2022-09-08 13:00 | disposition home or self-care (01) | DRG 390 ==
LOC: N.ED 05:42 → N.EDINP 13:01 → N.3E 14:31
PROVIDERS: ADMIT Surgery; ATTEND Surgery